=== PATIENT | female | born 1960 | race Hispanic/Latino ===

== ENCOUNTER 2016-11-21 13:19 | Emergency (ER) | payer OTHER ==
[2016-11-21 13:19] VITALS: BMI 25.4
[2016-11-21 13:25] VITALS: RESP 22; TEMP 98.4; O2SAT 99
--- NOTE | 2016-11-21 14:00 | ED PDOC ---
Upper Extremity Pain/Injury Time Seen by Provider: 11/21/16 13:28 Chief Complaint (Nursing): Upper Extremity Problem/Injury Chief Complaint (Provider): Left shoulder pain History Per: Patient History/Exam Limitations: no limitations Onset/Duration Of Symptoms: Other (chronic) Current Symptoms Are (Timing): Still Present Additional Complaint(s): Patient is a 55 y/o female with a past medical history of hypertension presenting to the emergency department for worsening left shoulder pain ongoing intermittently for a year and associated with a past injury. Patient reports that she was out of work for three months following the injury last year. Patient is under the care of a neurologist for chronic shoulder pain and she was told she has a pinched nerve in her shoulder. She had recent MRI several weeks ago. Patient took a Percocet tablet earlier but this did not help the pain. Neurologist: Dr. Pritchett PCP: Dr. Alexander Navarro Past Medical History Reviewed: Historical Data, Nursing Documentation, Vital Signs Vital Signs: Last Vital Signs Temp 98.4 F 11/21/16 13:23 Pulse 120 H 11/21/16 13:23 Resp 22 11/21/16 13:23 BP 165/110 H 11/21/16 13:23 Pulse Ox 99 11/21/16 13:23 - Medical History PMH: Arthritis, HTN - Surgical History Other surgeries: Left foot surgery - Family History Family History: States: No Known Family Hx - Living Arrangements Living Arrangements: With Family - Social History Current smoker - smoking cessation education provided: No Ex-Smoker (has not smoked in the last 12 months): No Alcohol: None Drugs: Denies - Home Medications Home Medications: Ambulatory Orders Medication Instructions Recorded amLODIPine [Norvasc] 5 mg PO DAILY 12/23/13 Cyclobenzaprine [Cyclobenzaprine 10 mg PO Q8 PRN #12 tab 12/04/15 HCl] Cyclobenzaprine [Cyclobenzaprine 10 mg PO TID PRN #20 tab 11/21/16 HCl] Ibuprofen [Motrin Tab] 800 mg PO Q8 PRN #20 tab 11/21/16 Lidocaine 5% [Lidoderm] 1 ea TD DAILY #30 patch 11/21/16 traMADol [Ultram] 50 mg PO TID PRN #15 tab 11/21/16 - Allergies Allergies/Adverse Reactions: Allergies Allergy/AdvReac Type Severity Reaction Status Date / Time latex Allergy ITCHING Verified 12/04/15 10:41 Review of Systems ROS Statement: Except As Marked, All Systems Reviewed And Found Negative Cardiovascular: Negative for: Chest Pain Musculoskeletal: Positive for: Shoulder Pain (left, acute on chronic) Physical Exam - Reviewed Nursing Documentation Reviewed: Yes Vital Signs Reviewed: Yes - Physical Exam Appears: Positive for: Non-toxic, No Acute Distress Head Exam: Positive for: ATRAUMATIC, NORMAL INSPECTION, NORMOCEPHALIC Skin: Positive for: Normal Color, Warm, Dry Neck: Positive for: Pain On Movement Of Neck Cardiovascular/Chest: Positive for: Regular Rate, Rhythm Respiratory: Positive for: Normal Breath Sounds. Negative for: Accessory Muscle Use, Respiratory Distress Back: Positive for: Normal Inspection. Negative for: Vertebral Tenderness Extremity: Positive for: Other (Decreased ROM of left shoulder. 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 Patient requires no further treatment in the ED at this time. Patient will be discharged with Rx for Tramadol, Motrin, Lidoderm patch and Flexeril. Counseling was provided and all questions were answered regarding diagnosis and need for follow up with an orthopedist, referral given. There is agreement to discharge plan. Return if symptoms persist or worsen. Scribe Attestation: Documented by Sun Farmer, acting as a scribe for HEATHER Sanchez. Provider Scribe Attestation: All medical record entries made by the Scribe were at my direction and personally dictated by me. I have reviewed the chart and agree that the record accurately reflects my personal performance of the history, physical exam, medical decision making, and the department course for this patient. I have also personally directed, reviewed, and agree with the discharge instructions and disposition. Disposition - Clinical Impression Clinical Impression: Chronic shoulder pain - Patient ED Disposition Is Patient to be Admitted: No Doctor Will See Patient In The: Office Counseled Patient/Family Regarding: Diagnosis, Need For Followup, Rx Given - Disposition Referrals: Lazara Lancaster MD [Staff Provider] - Disposition: Routine/Home Disposition Time: 14:32 Condition: IMPROVED Additional Instructions: Rest affected area as much as possible. Take prescription meds as directed. Follow-up with orthopedist for further evaluation. Prescriptions: Cyclobenzaprine [Cyclobenzaprine HCl] 10 mg PO TID PRN #20 tab PRN Reason: Muscle Spasm Ibuprofen [Motrin Tab] 800 mg PO Q8 PRN #20 tab PRN Reason: Pain, Moderate (4-7) Lidocaine 5% [Lidoderm] 1 ea TD DAILY #30 patch traMADol [Ultram] 50 mg PO TID PRN #15 tab PRN Reason: Pain, Moderate (4-7) Instructions: Shoulder Pain (ED) Forms: [facility] (Khmer), [facility] ED School/Work Excuse
[2016-11-21 14:44] VITALS: BP 139/88; PULSE 79
== END 2016-11-21 15:43 | disposition home or self-care (01) ==
LOC: H.ER 13:19
DX: M25.512 Pain in left shoulder (principal); G89.29 Other chronic pain; I10 Essential (primary) hypertension
CPT/HCPCS: 96372; 99282; J1885

== ENCOUNTER 2017-08-17 12:03 | Emergency (ER) | payer OTHER ==
[2017-08-17 12:03] VITALS: BMI 25.4
[2017-08-17 12:05] VITALS: O2SAT 100
--- NOTE | 2017-08-17 13:55 | ED PDOC ---
- ECG O2 Sat by Pulse Oximetry: 100 Disposition - Clinical Impression Clinical Impression: Anxiety - Disposition Referrals: [facility] [Outside] Alexander Navarro MD [Staff Provider] - Additional Instructions: FOLLOW UP WITH PMD/CRISIS RESOURCES FOR FURTHER EVALUATION. RETURN TO ED WITH ANY NEW OR WORSENING SYMPTOMS. Instructions: Anxiety, Adult (DC) Forms: meets (Afghan) Print Language: KHMER
--- NOTE | 2017-08-17 13:58 | ED PDOC ---
- ECG O2 Sat by Pulse Oximetry: 100 Medical Decision Making Medical Decision Makin Repeat HR: ____ Repeat BP: ____ On re-evaluation, patient reports improvement of symptoms. On exam, patient remains AAOx3, in no acute distress. Lungs clear to auscultation, cardiac RRR, abdomen soft, non-tender, repeat neuro exam shows no focal findings. Vitals stable, stable for discharge. Lab/Diagnostic results d/w the patient in great detail. Diagnosis of anxiety d/ w the patient. Based on history, exam and diagnostic results, plan will be for outpatient follow up. Patient instructed to follow-up with pmd / referral provided / the clinic in 1- 2 days without fail. Return to the emergency room at any time for any new or worsening symptoms. Patient states she fully agrees with and understands discharge instructions. States that she agrees with the plan and disposition. Verbalized and repeated discharge instructions and plan. I have given the patient opportunity to ask any additional questions. Disposition Counseled Patient/Family Regarding: Diagnosis, Need For Followup - Clinical Impression Clinical Impression: Anxiety - POA Present On Arrival: None - Disposition Referrals: [facility] [Outside] Alexander Navarro MD [Staff Provider] - Disposition: Routine/Home Disposition Time: 13:53 Condition: STABLE Additional Instructions: FOLLOW UP WITH PMD/CRISIS RESOURCES FOR FURTHER EVALUATION. RETURN TO ED WITH ANY NEW OR WORSENING SYMPTOMS. Instructions: Anxiety, Adult (DC) Print Language: THAI
--- NOTE | 2017-08-17 14:00 | ED PDOC ---
HPI: Psych/Substance Abuse Time Seen by Provider: 08/17/17 12:29 Chief Complaint (Nursing): Anxiety Chief Complaint (Provider): Anxiety History Per: Patient History/Exam Limitations: no limitations Onset/Duration Of Symptoms: Days ([id number]) Current Symptoms Are (Timing): Still Present Additional Complaint(s): 56 year old female presents to the ED for evaluation of feeling anxious due to stress from work for the past 2 months. 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 She reports experiencing nightmares, and not sleeping or eating well recently. Patient denies any suicidal or homicidal ideation, hallucinations, or history of anxiety/depression or any other mental illness. Patient has no physical complaints at present. PMD: [place] LMP: >10 years ago Past Medical History Reviewed: Historical Data, Nursing Documentation, Vital Signs Vital Signs: Last Vital Signs Temp 98.1 F 08/17/17 12:04 Pulse 99 H 08/17/17 12:04 Resp 17 08/17/17 12:04 BP 187/109 H 08/17/17 12:04 Pulse Ox 100 08/17/17 13:55 - Medical History PMH: Arthritis, Bronchitis, HTN - Surgical History Other surgeries: Hammertoe procedure to b/l feet - Family History Family History: States: Unknown Family Hx - Social History Current smoker - smoking cessation education provided: No Alcohol: None Drugs: Denies - Home Medications Home Medications: Ambulatory Orders Medication Instructions Recorded amLODIPine [Norvasc] 10 mg PO DAILY 12/23/13 Omeprazole Magnesium [Prilosec Otc] 40 mg PO DAILY 01/07/17 Amoxicillin/Clavulanate [Augmentin 1 tab PO BID #30 tab 01/14/17 875 MG-125 MG] Clindamycin [Cleocin] 300 mg PO BID #30 cap 01/14/17 - Allergies Allergies/Adverse Reactions: Allergies Allergy/AdvReac Type Severity Reaction Status Date / Time latex Allergy ITCHING Verified 08/17/17 12:07 Review of Systems ROS Statement: Except As Marked, All Systems Reviewed And Found Negative Psych: Positive for: Anxiety. Negative for: Suicidal ideation (or homicidal), Other (hallucinations) Physical Exam - Reviewed Nursing Documentation Reviewed: Yes Vital Signs Reviewed: Yes - Physical Exam Comments: GENERAL APPEARANCE: Patient is awake, alert, oriented x 3, in emotional distress. Tearful. SKIN: Warm, dry; (-) cyanosis EYES: (-) conjunctival pallor, (-) scleral icterus, (-) nystagmus. ENMT: Mucous membranes moist. Airway patent: (-) stridor. NECK: Supple, FROM CHEST AND RESPIRATORY: (-) rales, (-) rhonchi, (-) wheezes; breath sounds equal. Respirations even and nonlabored. ABDOMEN: Soft, (-) distention, (-) tenderness, (-) guarding. NEURO AND PSYCH: Mental status as above. box lidder: Grossly Intact. Pupils equal and reactive; EOMI and painless; (-) facial asymmetry; Speech clear, gait steady. - ECG O2 Sat by Pulse Oximetry: 100 (RA) Pulse Ox Interpretation: Normal Medical Decision Making Medical Decision Making: Time: 1241 Initial impression: anxiety Initial plan: --Crisis eval Time: 1340 Per crisis evaluation, patient to be discharged per Dr. Aranda with the diagnosis of anxiety. Time: 1350 Repeat HR: 70 Repeat BP: 143/91 On re-evaluation, patient offers no additional complaints at this time and remains AAOx3. Lungs clear to auscultation, cardiac RRR, abdomen soft, non-tender, repeat neuro exam shows no focal findings. Vitals stable, stable for discharge. Lab/Diagnostic results d/w the patient in great detail. Diagnosis of anxiety d/ w the patient. Based on history, exam and diagnostic results, plan will be for outpatient follow up. Patient instructed to follow-up with pmd / referral provided / the clinic in 1- 2 days without fail. Return to the emergency room at any time for any new or worsening symptoms. Patient states she fully agrees with and understands discharge instructions. States that she agrees with the plan and disposition. Verbalized and repeated discharge instructions and plan. I have given the patient opportunity to ask any additional questions. Disposition - Clinical Impression Clinical Impression: Anxiety - Patient ED Disposition Is Patient to be Admitted: No Counseled Patient/Family Regarding: Diagnosis, Need For Followup - Disposition Referrals: [facility] [Outside] Alexander Navarro MD [Staff Provider] - Disposition: Routine/Home Disposition Time: 13:53 Condition: STABLE Additional Instructions: FOLLOW UP WITH PMD/CRISIS RESOURCES FOR FURTHER EVALUATION. RETURN TO ED WITH ANY NEW OR WORSENING SYMPTOMS. Instructions: Anxiety, Adult (DC) Forms: [facility] (Syriac) Print Language: ESTONIAN - POA Present On Arrival: None
[2017-08-17 14:01] VITALS: BP 143/91; PULSE 70; RESP 20; TEMP 98
== END 2017-08-17 14:00 | disposition home or self-care (01) ==
LOC: H.ER 12:03
DX: F41.9 Anxiety disorder, unspecified (principal); I10 Essential (primary) hypertension

== ENCOUNTER 2018-01-27 09:37 | Day surgery (SDC) | payer OTHER ==
[2018-01-27] MEDS ORDERED: Maxitrol Opht Susp ONE (09:46)
[2018-01-27] MEDS ORDERED: Pilocarpine 1% Opht Soln ONE (09:46)
[2018-01-27] MEDS ORDERED: Lidocaine 1% 20 MG/2 ML PF AMP ONE (09:46)
[2018-01-27] MEDS ORDERED: Tetracaine 0.5% Ophth 2 ML BOTTLE ONE (09:46)
[2018-01-27] MEDS ORDERED: CA CL/K CL/NA CL 500 ML IR ONE (09:47)
[2018-01-27] MEDS ORDERED: STERILE IRRIGATING SOLUTION 45 ML IR ONE (09:47)
[2018-01-27] MEDS ORDERED: Chondroitin/Hyaluronate Opth Syringe KIT (0.55 ml-0.5 ml) IO ONE ×3 (09:47→13:31)
[2018-01-27] MEDS ORDERED: Povidone Iodine 5% Opht SOLUTION ONE (09:48)
[2018-01-27] MEDS ORDERED: Carbachol 0.01% IO ONE ×3 (09:48→13:35)
[2018-01-27 10:27] VITALS: BMI 25.7
[2018-01-27] MEDS ORDERED: Phenylephrine 2.5% Opht Soln OD ONE (10:43)
[2018-01-27] MEDS ORDERED: Tropicamide 1% Opht 150 DROP/15 ML OS ONE (11:00)
[2018-01-27] MEDS ORDERED: Flurbiprofen 0.03% Opht SOLN OS ONE ×2 (11:00→11:15)
[2018-01-27] MEDS ORDERED: Lactated Ringer's 1,000 ML IV ONE (11:15)
[2018-01-27] MEDS ORDERED: Midazolam 2 MG/2 ML VIAL ONE (13:06)
[2018-01-27] MEDS: EPINEPHrine 1 mg/ml (1:1000) Inj ONE ×2 (13:30→13:33)
[2018-01-27] MEDS ORDERED: Maxitrol Opht Susp OS ONE ×2 (13:32→13:40)
[2018-01-27] MEDS ORDERED: Pilocarpine 1% Opht Soln OS ONE ×2 (13:32→13:37)
[2018-01-27] MEDS ORDERED: BSS 15 ML SOL IR ONE (13:33)
[2018-01-27 18:14] VITALS: BP 140/80; PULSE 67; RESP 19; TEMP 98.6; O2SAT 100
--- NOTE | 2018-01-28 07:21 | OP ---
PROCEDURE DATE: 01/27/2018 SURGEON: HU HAM MD ANESTHESIOLOGIST: ANGELA SPANN MD ANESTHESIA: LOCAL / IV SEDATION PREOPERATIVE DIAGNOSIS: CATARACT LEFT EYE. POSTOPERATIVE DIAGNOSIS: CATARACT LEFT EYE. OPERATION: CLEAR CORNEAL PHACOEMULSIFICATION WITH LENS IMPLANT LEFT EYE. PREPARATION AND PROCEDURE: After the patient was prepped and draped in the usual manner for sterile ophthalmic surgery, local IV sedation was administered; eye seals were applied to the upper and lower lid margins and an adult wire lid speculum was placed within the lids. Under microsurgical control, a two-step clear corneal incision was made into the anterior chamber. The initial incision was perpendicular to the corneal plane. The second incision with the keratome was placed at a 45-degree angle to the first incision. One cc of one percent Xylocaine MPF was instilled into the anterior chamber to achieve proper intraocular anesthesia. At this time, the Viscoelastic was injected into the anterior chamber for protection of the endothelium and for maintenance of the chamber depth. A 360-degree continuous curvilinear capsulorrhexis was performed using a pre-bent 25-gauge needle. Hydrodissection and hydrodelineation were performed using a Huynh cannula and balanced salt solution. Utilizing the tip of the Huynh cannula, the nucleus was rotated freely within the capsular bag. A standard one-handed phacoemulsification was utilized at this time for sculpting and rotating of the nucleus. The nucleus was fragmented in its entirety and aspirated without any consequence. A standard I&A was carried out for the residual cortical material. No residual material was noted within the capsular bag. The posterior capsule was noted to be clear. Additional Viscoelastic was injected into the capsular bag in preparation for lens implantation. After this has been satisfactorily achieved the intraocular lens injected through the corneal incision into the capsular bag. The intraocular lens was manipulated until it was properly oriented and the Viscoelastic was evacuated from the capsular bag and anterior chamber. The anterior chamber was reformed with balanced salt solution. The corneal incision was irrigated with BSS. The intraocular pressure was found to be within normal limits. This terminated the procedure. The speculum and lid drapes were removed. TobraDex ophthalmic suspension and Pilocarpine 1% drops one drop was applied to the eye. POSTOPERATIVE CONDITION: The patient was brought to the Post anesthesia Recovery area with stable vital signs. DHU RAYGOZA MD
== END 2018-01-27 17:30 | disposition home or self-care (01) ==
LOC: H.OPSURG 09:37
PROVIDERS: ATTEND Ophthalmology
DX: H26.8 Other specified cataract (principal)
CPT/HCPCS: 66984; J0171; J2250; J3010; J7120; V2632

== ENCOUNTER 2018-02-10 08:01 | Day surgery (SDC) | payer OTHER ==
[2018-02-10] MEDS ORDERED: Phenylephrine 2.5% Opht Soln OD ONE ×2 (08:32→08:45)
[2018-02-10] MEDS ORDERED: Tropicamide 1% Opht 150 DROP/15 ML OD ONE ×2 (08:45)
[2018-02-10] MEDS ORDERED: Flurbiprofen 0.03% Opht SOLN OD ONE ×2 (08:45)
[2018-02-10] MEDS ORDERED: Tetracaine 0.5% Ophth 2 ML BOTTLE ONE (09:51)
[2018-02-10] MEDS ORDERED: Maxitrol Opht Susp ONE (09:51)
[2018-02-10] MEDS ORDERED: EPINEPHrine 1 mg/ml (1:1000) Inj ONE (09:52)
[2018-02-10] MEDS ORDERED: Pilocarpine 1% Opht Soln ONE (09:52)
[2018-02-10] MEDS ORDERED: Lidocaine 1% 20 MG/2 ML PF AMP ONE (09:52)
[2018-02-10] MEDS ORDERED: STERILE IRRIGATING SOLUTION 45 ML IR ONE (09:52)
[2018-02-10] MEDS ORDERED: CA CL/K CL/NA CL 500 ML IR ONE (09:52)
[2018-02-10] MEDS ORDERED: Chondroitin/Hyaluronate Opth Syringe KIT (0.55 ml-0.5 ml) IO ONE (09:53)
[2018-02-10] MEDS ORDERED: Povidone Iodine 5% Opht SOLUTION ONE (09:53)
[2018-02-10] MEDS ORDERED: Carbachol 0.01% IO ONE (09:53)
[2018-02-10] MEDS ORDERED: Midazolam 2 MG/2 ML VIAL ONE (10:52)
[2018-02-10] MEDS ORDERED: BSS 15 ML SOL IR ONE (11:10)
[2018-02-10] MEDS ORDERED: Lactated Ringer's 1,000 ML IV ONE (11:26)
[2018-02-10 12:27] VITALS: O2SAT 99
--- NOTE | 2018-02-10 13:15 | OP ---
PROCEDURE DATE: 02/10/2018 SURGEON: HU HAM MD ANESTHESIOLOGIST: FRANCHESCA RUIZ MD ANESTHESIA: LOCAL / IV SEDATION PREOPERATIVE DIAGNOSIS: CATARACT RIGHT EYE. POSTOPERATIVE DIAGNOSIS: CATARACT RIGHT EYE. OPERATION: CLEAR CORNEAL PHACOEMULSIFICATION WITH LENS IMPLANT RIGHT EYE. PREPARATION AND PROCEDURE: After the patient was prepped and draped in the usual manner for sterile ophthalmic surgery, local IV sedation was administered; eye seals were applied to the upper and lower lid margins and an adult wire lid speculum was placed within the lids. Under microsurgical control, a two-step clear corneal incision was made into the anterior chamber. The initial incision was perpendicular to the corneal plane. The second incision with the keratome was placed at a 45-degree angle to the first incision. One cc of one percent Xylocaine MPF was instilled into the anterior chamber to achieve proper intraocular anesthesia. At this time, the Viscoelastic was injected into the anterior chamber for protection of the endothelium and for maintenance of the chamber depth. A 360-degree continuous curvilinear capsulorrhexis was performed using a pre-bent 25-gauge needle. Hydrodissection and hydrodelineation were performed using a Huynh cannula and balanced salt solution. Utilizing the tip of the Huynh cannula, the nucleus was rotated freely within the capsular bag. A standard one-handed phacoemulsification was utilized at this time for sculpting and rotating of the nucleus. The nucleus was fragmented in its entirety and aspirated without any consequence. A standard I&A was carried out for the residual cortical material. No residual material was noted within the capsular bag. The posterior capsule was noted to be clear. Additional Viscoelastic was injected into the capsular bag in preparation for lens implantation. After this has been satisfactorily achieved the intraocular lens injected through the corneal incision into the capsular bag. The intraocular lens was manipulated until it was properly oriented and the Viscoelastic was evacuated from the capsular bag and anterior chamber. The anterior chamber was reformed with balanced salt solution. The corneal incision was irrigated with BSS. The intraocular pressure was found to be within normal limits. This terminated the procedure. The speculum and lid drapes were removed. TobraDex ophthalmic suspension and Pilocarpine 1% drops one drop was applied to the eye. POSTOPERATIVE CONDITION: The patient was brought to the Post anesthesia Recovery area with stable vital signs. DHU RAYGOZA MD
[2018-02-10 13:16] VITALS: BP 120/70; PULSE 75; RESP 18; TEMP 97.6
== END 2018-02-10 13:35 | disposition home or self-care (01) ==
LOC: H.OPSURG 08:01
PROVIDERS: ATTEND Ophthalmology
DX: H25.811 Combined forms of age-related cataract, right eye (principal); I10 Essential (primary) hypertension
CPT/HCPCS: 66984; J0171; J2250; J3010; J7120; V2632